=== PATIENT | male | born 1995 | race Caucasian/White ===

== ENCOUNTER 2022-03-18 03:38 | Inpatient (IN) | payer OTHER ==
--- NOTE | 2022-03-18 04:07 | ER ---
Nurse's Notes [facility] Name: Elvis Rosales Age: 26 yrs Sex: Male : 1995 Arrival Date: 03/18/2022 Time: 03:41 Bed 13 Private MD: Diagnosis: Right forearm cellulitis Presentation: 03/18 04:01 Chief complaint: Patient states: he was bitten by a dog 2 days ago and was seen at [facility] but was not able to get his antibiotics filled now right arm is swollen, painful, reddened. Coronavirus screen: At this time, the client does not indicate any symptoms associated with coronavirus-19. Ebola Screen: No symptoms or risks identified at this time. Initial Sepsis Screen: Does the patient meet any 2 criteria? No. Patient's initial sepsis screen is negative. Does the patient have a suspected source of infection? Yes: Skin breakdown/wound. Risk Assessment: Do you want to hurt yourself or someone else? Patient reports no desire to harm self or others. Onset of symptoms was March 18, 2022. 04:01 Method Of Arrival: Ambulatory 04:01 Acuity: MARION 3 Triage Assessment: 04:03 Bite description: bite sustained to right arm by a dog, animal information: bb vaccination(s) is unknown. 04:10 General: Appears in no apparent distress. uncomfortable, Behavior is calm, cooperative, vc1 appropriate for age. Pain: Complains of pain in right arm Pain currently is 7 out of 10 on a pain scale. Quality of pain is described as sharp, squeezing, throbbing, Pain began gradually. Neuro: No deficits noted. Cardiovascular: Patient's skin is warm and dry. Rhythm is sinus rhythm. Respiratory: Airway is patent Respiratory effort is even, unlabored, Respiratory pattern is regular, symmetrical. GI: No deficits noted. : No deficits noted. Derm: Skin temperature is hot Wound noted right arm. Musculoskeletal: Swelling present in right arm. Injury Description: Bite sustained to right arm caused by a dog, was sustained 2 days ago. Historical: - Allergies: 04:03 No Known Allergies; bb - Home Meds: 04:03 None [Active]; bb - PMHx: 04:03 None; bb - PSHx: 04:03 None; bb - Immunization history:: Client reports having NOT received the Covid vaccine. Last tetanus immunization: up to date. - Social history:: Smoking status: Patient reports the use of cigarette tobacco products. Screenin:10 Abuse screen: Denies threats or abuse. Nutritional screening: No deficits noted. vc1 Tuberculosis screening: No symptoms or risk factors identified. Fall Risk None identified. Sepsis Screening: . Infection: Patient has suspected or documented infection. Patient is currently on antibiotics that were not prescribed as prophylaxis. Assessment: 04:10 Derm: Skin Bite and abrasions to left arm Skin is pink, warm \\T\\ dry. vc1 04:10 Reassessment: See triage assessment. vc1 05:00 Reassessment: Patient and/or family updated on plan of care and expected duration. Pain vc1 level reassessed. Patient is alert, oriented x 3, equal unlabored respirations, skin warm/dry/pink. Patient states symptoms have improved. 06:23 Reassessment: Patient and/or family updated on plan of care and expected duration. Pain vc1 level reassessed. Patient is alert, oriented x 3, equal unlabored respirations, skin warm/dry/pink. Patient states symptoms have improved. Vital Signs: 04:01 BP 115 / 73; Pulse 135; Resp 16 S; Temp 100(O); Pulse Ox 98% on R/A; Weight 81.65 kg bb (R); Height 5 ft. 10 in. (177.80 cm) (R); Pain 7/10; 05:54 BP 113 / 70; Pulse 100; Resp 15; Pulse Ox 97% on R/A; vc1 06:23 BP 111 / 66; Pulse 92; Resp 17; Pulse Ox 100% ; vc1 04:01 Body Mass Index 25.83 (81.65 kg, 177.80 cm) ED Course: 03:41 Patient arrived in ED. ja2 03:53 Anton Amato DO is Attending Physician. ms3 04:03 Triage completed. bb 04:03 Arm band placed on Patient placed in an exam room, on a stretcher, on pulse oximetry. bb 04:07 Arden Cruz is Hospitalizing Provider. ms3 04:09 Destini Sosa, ZAID is Primary Nurse. vc1 04:25 No provider procedures requiring assistance completed. Inserted saline lock: 20 gauge vc1 in left antecubital area, using aseptic technique. Blood collected. 04:50 Inserted saline lock: 20 gauge in left forearm, using aseptic technique. Blood vc1 collected. 05:19 COVID-19/FLU A+B (Document "Date of Onset" if Symptomatic) Sent. vc1 05:53 Patient has correct armband on for positive identification. Bed in low position. Call vc1 light in reach. Client placed on continuous cardiac and pulse oximetry monitoring. NIBP monitoring applied. Administered Medications: 04:13 CANCELLED (Physician Discretion): vancoMYCIN 1 grams IVPB once over 2 hrs ms3 04:40 Drug: morphine 4 mg Route: IVP; Infused Over: 4 mins; Site: left antecubital; vc1 06:24 Follow up: Response: No adverse reaction; Marked relief of symptoms; Pain is decreased vc1 05:17 Drug: Zosyn (piperacillin-tazobactam) 3.375 grams Route: IVPB; Infused Over: 60 mins; vc1 Site: left antecubital; 06:25 Follow up: IV Status: Completed infusion; IV Intake: 100ml vc1 Intake: 06:25 IV: 100ml; Total: 100ml. vc1 Outcome: 04:07 Decision to Hospitalize by Provider. ms3 14:15 Patient left the ED. ph Signatures: Anamaria Loyola RN RN Taylor Merida RN RN ph Anton Amato DO DO ms3 Marry Rubio Vanessa, RN RN vc1
[2022-03-18] MEDS ORDERED: MORPHINE 4 MG/ML SYR ONE ×3 (04:44→13:27)
[2022-03-18] MEDS ORDERED: NA CHLORIDE 0.9% 100 ML ONE (04:45)
[2022-03-18] MEDS ORDERED: PIPERACIL/TAZO 3.375 GM VIAL IV ONE ×2 (04:45→14:46)
[2022-03-18 04:54] LABS: Hematocrit 42.4 % (39.6-49.0); Lymphocytes % 9.3 % (15.3-44.8); MPV 7.9 fL (7.6-11.3); RBC Red Blood Cell Count 4.62 M/uL (4.33-5.43)
--- NOTE | 2022-03-18 04:55 | P.HP ---
Certification for Inpatient Patient admitted to: Inpatient With expected LOS: <2 Midnights Patient will require the following post-hospital care: None Practitioner: I am a practitioner with admitting privileges, knowledge of patient current condition, hospital course, and medical plan of care. Services: Services provided to patient in accordance with Admission requirements found in Title 42 Section 412.3 of the Code of Federal Regulations Patient History Date of Service: 03/18/22 Reason for admission: Cellulitus R Forearm History of Present Illness: Patient is a 26 y/o male with no medical problems who presented to the ED with complaints of increased pain and swelling to his R forearm. Patient states that he was bit by a dog (that he believes is vaccinated) 2 days ago. He went to [facility], had the wounds cleaned, and was discharged with a prescription for Augmentin. Patient did not fill the prescription because he states he could not afford it. He reports the swelling and pain has slowly gotten worse and now he cannot fully bend his hand/fingers. Patient was tachycardic upon presentation to the ED. WBC 11.3. Will admit patient for IV antibiotics. Home medications list reviewed: Yes (NA) - Past Medical/Surgical History Diabetic: No Past Medical History: Patient denies medical history Past Surgical History: Patient denies surgical history Psychosocial/ Personal History: Patient lives at home with friends. - Family History Family History: Reviewed- Non-Contributory - Social History Smoking Status: Current every day smoker Alcohol use: Yes CD- Drugs: No Caffeine use: Yes Place of Residence: Home Review of Systems 10-point ROS is otherwise unremarkable Musculoskeletal: Arm Pain Physical Examination - Physical Exam General: Alert, In no apparent distress, Oriented x3 HEENT: Atraumatic, PERRLA, Mucous membr. moist/pink, EOMI, Sclerae nonicteric Neck: Supple, 2+ carotid pulse no bruit, No LAD, Without JVD or thyroid abnormality Respiratory: Clear to auscultation bilaterally, Normal air movement Cardiovascular: Normal S1 S2, Other (tachycardia) Gastrointestinal: Normal bowel sounds, No tenderness Musculoskeletal: No tenderness Integumentary: Tenderness/swelling, Erythema, Warmth, Other (multiple dog bites around R forearm. Cellulitus R forearm extending to dorsum ) Neurological: Normal speech, Sensation intact, Normal affect Assessment and Plan - Problems (Diagnosis) (1) Cellulitis of forearm, right Current Visit: Yes Status: Acute (2) Dog bite of right forearm with infection Current Visit: Yes Status: Acute Qualifiers: Encounter type: initial encounter Qualified Code(s): S51.851A - Open bite of right forearm, initial encounter; L08.9 - Local infection of the skin and subcutaneous tissue, unspecified; W54.0XXA - Bitten by dog, initial encounter (3) Hypokalemia Current Visit: Yes Status: Acute - Plan -IV zosyn -morphine PRN -general surgery consulted -wound care consult -monitor and replete electrolytes per protocol -Lovenox for VTE ppx -Full code Discharge Plan: Home Plan to discharge in: 48 Hours - Advance Directives Does patient have a Living Will: No Does patient have a Durable POA for Healthcare: No - Code Status/Comfort Care Code Status Assessed: Yes (Full) Critical Care: No Time Spent Managing Pts Care (In Minutes): 50
[2022-03-18 04:58] LABS: Protime INR 1.1
[2022-03-18] MEDS ORDERED: NA CHLORIDE 0.9% 500 ML ONE (05:00)
[2022-03-18 05:12] LABS: Albumin 3.6 g/dL (3.4-5.0); Bilirubin Total 0.8 mg/dL (0.2-1.0); Potassium 3.4 mmol/L (3.5-5.1)
[2022-03-18] MEDS ORDERED: ONDANSETRON 4 MG/2 ML VIAL IV PRN (06:51)
[2022-03-18 06:56] VITALS: BMI 25.8
[2022-03-18] MEDS: MORPHINE 4 MG/ML SYR IV PRN ×3 (08:40→17:35)
[2022-03-18] MEDS ORDERED: ENOXAPARIN 40 MG/0.4 ML SQ SCH (09:00)
[2022-03-18] MEDS ORDERED: PIPER TAZO 3.375 GM in NA CHLORIDE 0.9% 100 ML IV SCH ×2 (09:00→14:00)
--- NOTE | 2022-03-18 14:16 | EDPHYS ---
Physician Documentation [facility] Name: Elvis Rosales Age: 26 yrs Sex: Male : 1995 Arrival Date: 03/18/2022 Time: 03:41 Bed 13 Private MD: ED Physician Anton Amato HPI: 03/18 04:28 This 26 yrs old Male presents to ER via Ambulatory with complaints of Dog Bite. ms3 04:28 The patient was bitten on the right arm, by a dog, Accident because he moved too fast, ms3 Onset: The symptoms/episode began/occurred 2 day(s) ago. Animal information: The animal is known and can be quarantined. Secondary to the bite the patient reports an abrasion, pain, multiple puncture wounds, that are superficial, that are deep, swelling, warmth. Patient seen at [facility] 2 days ago. Patient denies filling prescription for abx.. Historical: - Allergies: 04:03 No Known Allergies; bb - Home Meds: 04:03 None [Active]; bb - PMHx: 04:03 None; bb - PSHx: 04:03 None; bb - Immunization history:: Client reports having NOT received the Covid vaccine. Last tetanus immunization: up to date. - Social history:: Smoking status: Patient reports the use of cigarette tobacco products. ROS: 04:28 Constitutional: Negative for fever, and chills. Neck: Negative for injury, pain, and ms3 swelling, Cardiovascular: Negative for chest pain, and palpitations. Respiratory: Negative for shortness of breath, cough, wheezing, and pleuritic chest pain, Abdomen/GI: Negative for abdominal pain, nausea, vomiting, diarrhea, and constipation. 04:28 Neuro: Negative for headache, weakness, numbness, tingling. 04:28 Skin: Positive for abrasion(s), erythema, puncture, rash, swelling. 04:28 All other systems are negative. Exam: 04:28 Head/Face: Normocephalic, atraumatic. Neck: Trachea midline, no cervical ms3 lymphadenopathy. Supple, full range of motion without nuchal rigidity, or vertebral point tenderness. No Meningismus. Chest/axilla: Normal chest wall appearance and motion. Nontender with no deformity. 04:28 Psych: Awake, alert, with orientation to person, place and time. Behavior, mood, and affect are within normal limits. 04:28 Constitutional: The patient appears 04:28 Cardiovascular: Rate: tachycardic, Rhythm: regular, Pulses: no pulse deficits are appreciated, Heart sounds: normal, normal S1and S2. 04:28 Skin: cellulitis, that is severe, confluent, on the right arm. 05:38 ECG was reviewed by the Attending Physician. ms3 Vital Signs: 04:01 BP 115 / 73; Pulse 135; Resp 16 S; Temp 100(O); Pulse Ox 98% on R/A; Weight 81.65 kg bb (R); Height 5 ft. 10 in. (177.80 cm) (R); Pain 7/10; 05:54 BP 113 / 70; Pulse 100; Resp 15; Pulse Ox 97% on R/A; vc1 06:23 BP 111 / 66; Pulse 92; Resp 17; Pulse Ox 100% ; vc1 04:01 Body Mass Index 25.83 (81.65 kg, 177.80 cm) bb MDM: 04:02 Patient medically screened. ms3 04:28 Differential diagnosis: superficial laceration, cellulitis. Data reviewed: vital signs, ms3 nurses notes. Counseling: I had a detailed discussion with the patient and/or guardian regarding: the historical points, exam findings, and any diagnostic results supporting the discharge/admit diagnosis, the need for further work-up and treatment in the hospital. ED course: Discussed case with BASSAM Duenas, and she accepts patient on behalf of Dr Cruz.. 03/18 04:08 Order name: Blood Culture Adult (2) ms3 03/18 04:08 Order name: CBC with Diff; Complete Time: 05:55 ms3 03/18 04:08 Order name: CMP; Complete Time: 05:55 ms3 03/18 04:08 Order name: Lactate; Complete Time: 05:55 ms3 03/18 04:08 Order name: Protime (+inr); Complete Time: 05:55 ms3 03/18 04:08 Order name: Ptt, Activated; Complete Time: 05:55 ms3 03/18 04:08 Order name: Accucheck; Complete Time: 05:08 ms3 03/18 04:09 Order name: Forearm Right XRAY ms3 03/18 04:15 Order name: COVID-19/FLU A+B (Document "Date of Onset" if Symptomatic) bb 03/18 04:46 Order name: Glucose, Ancillary Testing; Complete Time: 04:56 EDMS 03/18 05:56 Order name: SARS-COV-2 RT PCR; Complete Time: 13:27 EDMS 03/18 04:08 Order name: Cardiac monitoring; Complete Time: 05:57 ms3 03/18 04:08 Order name: EKG - Nurse/Tech; Complete Time: 05:49 ms3 03/18 04:08 Order name: IV Saline Lock - Large Bore; Complete Time: 05:09 ms3 03/18 04:08 Order name: Labs collected and sent; Complete Time: 05:09 ms3 04 04:08 Order name: O2 Per Protocol; Complete Time: 05:09 ms3 03/18 04:08 Order name: O2 Sat Monitoring; Complete Time: 05:09 ms3 EC:38 Rate is 95 beats/min. Rhythm is regular. QRS [place] is Normal. [place] interval is normal. ms3 Clinical impression: Normal ECG. Interpreted by me. Administered Medications: 04:13 CANCELLED (Physician Discretion): vancoMYCIN 1 grams IVPB once over 2 hrs ms3 04:40 Drug: morphine 4 mg Route: IVP; Infused Over: 4 mins; Site: left antecubital; vc1 06:24 Follow up: Response: No adverse reaction; Marked relief of symptoms; Pain is decreased vc1 05:17 Drug: Zosyn (piperacillin-tazobactam) 3.375 grams Route: IVPB; Infused Over: 60 mins; vc1 Site: left antecubital; 06:25 Follow up: IV Status: Completed infusion; IV Intake: 100ml vc1 Disposition Summary: 03/18/22 04:07 Hospitalization Ordered Hospitalization Status: Inpatient Admission ms3 Provider: Arden Cruz ms3 Condition: Stable ms3 Problem: new ms3 Symptoms: have worsened ms3 Bed/Room Type: Standard ms3 Location: Telemetry/MedSurg (Inpatient)(03/18/22 13:07) eb Room Assignment: [facility](03/18/22 13:07) eb Diagnosis - Right forearm cellulitis ms3 Forms: - Medication Reconciliation Form ms3 - SBAR form ms3 Signatures: Dispatcher [employer] EDMS Dali Pierce RN RN mw Anderson, Corey, MD MD cha Ballard, Brenda, RN RN Delmi Rob Marcus, DO DO ms3 Destini Sosa RN RN vc1 Fauzia Loving, PA PA sb3 Corrections: (The following items were deleted from the chart) 04:13 04:08 vancoMYCIN 1 grams IVPB once over 2 hrs ordered. ms3 ms3 04:45 04:07 Telemetry/MedSurg (Inpatient) ms3 mw 04:45 04:07 ms3 mw 13:07 04:45 [facility] ER HOLD mw eb 13:07 04:45 ERHOLD- mw eb
[2022-03-18 14:43] VITALS: O2SAT 100
--- NOTE | 2022-03-18 15:15 | P.PN ---
Date of Service: 03/18/22 Patient complaining of uncontrolled pain in the right arm. On examination, patient's right arm is swollen and tender with bite zaid on the radial aspect of the forearm. Patient with difficulty extending the elbow and may have tendon involvement. Seen by Dr. Worrell who recommended hand surgeon evaluation. High risk for compartment syndrome per Dr. Worrell. I could not reach Dr. Guan for an urgent consult. Dr. Worrell recommend transfer to another hospital for Hand Surgeon evaluation. Transfer to [facility]. Continue aggressive antibiotic therapy. Pain management as needed. Follow cultures.
[2022-03-18 15:47] VITALS: BP 110/67; TEMP 99.7
--- NOTE | 2022-03-18 15:54 | CON ---
Date of Consultation: 03/18/2022 Brief History Of Present Illness: Patient is a 26-year-old male, brought to ER via ambulatory with c billylaints of a dog bite which occurred approximately 3 days prior. He states that that it was his fr david's dog. He came in and startled the animal by accident as he came in his friend's house. The do g was startled, attacked him, and when the light was on, the dog identified him and backed off immedi ately. He ultimately knew the animal and it was quarantined by report. The bite caused multiple sma ll puncture wounds, abrasions on the right arm at the midforearm in that area. He went to [facility] approximately 2 days ago, was given a prescription for Augmentin, but did not fill du e to, he states, financial concerns. As such, the swelling, tenderness, and decreased function of hi s hand continued to worsen. He states that he can no longer open his hand fully, particularly the la st 2 fingers, but the ring finger and index finger are still able to flex, but extension is reduced i n all 4 extremities at this time by his report. Allergies: NO KNOWN DRUG ALLERGIES. Home Medications: None. Past Medical History: Denies. Past Surgical History: Denies. Immunization: He has not received a COVID vaccine. Tetanus is up to date. Social History: He uses tobacco daily. He denies any recreational drug use. Review of Systems: Ten-point review of systems other than HPI, denies. Physical Examination: At the time of my examination. Vital Signs: His blood pressure 110/58, heart rate is 90, respiratory rate 18, temperature 98.7. Pa in level is 9. His O2 sats are 99%. General: He is awake, alert, and oriented. Psychiatric: He is appropriate, conversive. HEENT: Normocephalic. His sclerae anicteric. Mucous membranes are moist. Oropharynx clear. Neck: Supple without JVD. Chest: Normal expansion and excursion. Cardiovascular: Regular rate and rhythm. Pulmonary: Clear to auscultation bilaterally. Extremities: Focused examination of his right upper extremity, there is significant swelling to the right upper extremity with cellulitic changes to the entire arm extending up to beyond the elbow join t. The biceps and triceps appear to be same size as the contralateral extremity, but the forearm and hand are clearly severely swollen. He has decreased range of motion, decreased sensation in hand an d decreased extension, particularly the last 2 fingers, the ring finger and the adjacent fifth finger had decreased extension significantly. He states that he still has sensation in the area but it is painful and tender in this area and has been so for several days prior to his presentation in the [facility]. He states that this is essentially unchanged from his previous symptoms over the past day or 2. Laboratory Exam: Reveals a white blood cell count of 11.3, hemoglobin is 14.5, hematocrit of 42.4, p latelet count is 199, neutrophils of 77%. His PT 12.1, INR 1.1, PTT is 32. His sodium 134, potassiu m 3.4, chloride 100, carbon dioxide 28, BUN 20, creatinine is 1.08, glucose is 114, lactic acid 1.2, total bilirubin 0.8, AST 13, ALT 18, alkaline phosphatase is 66. His COVID was negative. He had lilly ging performed, which included a forearm x-ray, which showed soft tissue swelling. No foreign bodies were appreciated and no fracture dislocations noted. Assessment And Plan: This is a 26-year-old male who comes in 3 days after a dog bite. Did not fill his prescription for antibiotics and now has progression of worsening of symptoms with decreased rang e of motion particularly and continued pain of the right upper extremity. 1.Continue antibiotic coverage. 2.Wrap and elevate extremity. 3.Patient requires a specialist Hand surgeon as his degree of injury is significant at this point, a nd he may require ongoing care beyond the scope of what we are capable of performing from a general s urgical standpoint. As such, I recommend a Hand surgeon be consulted or the patient be transferred t o higher level of care. I have explained risks, benefits, and alternatives to above-stated plan. Patient agrees to proceed a s indicated. EDUAR/ELLEN Voice ID: [id number] Report ID: [id number]
--- NOTE | 2022-03-18 17:40 | P.DS ---
Admission Date: 03/18/22 Discharge Date: 03/18/22 Reason for Admission: Cellulitus R Forearm - Problems (1) Cellulitis of forearm, right Current Visit: Yes Status: Acute (2) Dog bite of right forearm with infection Current Visit: Yes Status: Acute Qualifiers: Encounter type: initial encounter Qualified Code(s): S51.851A - Open bite of right forearm, initial encounter; L08.9 - Local infection of the skin and subcutaneous tissue, unspecified; W54.0XXA - Bitten by dog, initial encounter Brief History of Present Illness: Patient is a 26 y/o male with no medical problems who presented to the ED with complaints of increased pain and swelling to his R forearm. Patient states that he was bit by a dog (that he believes is vaccinated) 2 days ago. He went to [facility], had the wounds cleaned, and was discharged with a prescription for Augmentin. Patient did not fill the prescription because he states he could not afford it. He reported the swelling and pain got worse slowly to the point he could not fully bend his hand/fingers. Patient was tachycardic upon presentation to the ED. WBC 11.3 meeting criteria for sepsis. Patient hospitalized for further management. Hospital Course: Patient admitted to the medical floor and started on IV Zosyn. He was evaluated by general surgery-Dr. Worrell who recommended hand surgeon evaluation. Patient right forearm looked swollen and Dr. Worrell was concerned about impending compartment syndrome and therefore recommended transfer to another hospital for hand surgeons evaluation as soon as possible. Transfer initiated to [facility]. Patient has been accepted for transfer. He is clinically stable. Vital Signs/Physical Exam: Temp Pulse Resp BP Pulse Ox 99.7 F 89 16 110/67 99 03/18/22 15:46 03/18/22 15:46 03/18/22 17:35 03/18/22 15:46 03/18/22 17:35 General: Alert, In no apparent distress, Oriented x3 HEENT: Mucous membr. moist/pink Neck: Supple, JVD not distended Respiratory: Clear to auscultation bilaterally, Normal air movement Cardiovascular: No edema, Regular rate/rhythm, Normal S1 S2 Gastrointestinal: Normal bowel sounds, Soft and benign, Non-distended Musculoskeletal: Swelling (Right forearm) Integumentary: Erythema, Other (Dog bite crenshaw-mid radial aspect of the right forearm.) Neurological: Normal strength at 5/5 x4 extr, Cranial nerves 3-12 intact Laboratory Data at Discharge: WBC 11.3 K/uL (4.3-10.9) H 03/18/22 04:26 Hgb 14.5 g/dL (13.6-17.9) 03/18/22 04:26 Hct 42.4 % (39.6-49.0) 03/18/22 04:26 Plt Count 199 K/uL (152-406) 03/18/22 04:26 PT 12.1 SECONDS (9.5-12.5) 03/18/22 04:26 INR 1.10 03/18/22 04:26 APTT 32.0 SECONDS (24.3-36.9) 03/18/22 04:26 Sodium 134 mmol/L (136-145) L 03/18/22 04:26 Potassium 3.4 mmol/L (3.5-5.1) L 03/18/22 04:26 BUN 20 mg/dL (7-18) H 03/18/22 04:26 Creatinine 1.08 mg/dL (0.55-1.3) 03/18/22 04:26 Glucose 114 mg/dL (74-106) H 03/18/22 04:26 Total Bilirubin 0.8 mg/dL (0.2-1.0) 03/18/22 04:26 AST 13 U/L (15-37) L 03/18/22 04:26 ALT 18 U/L (12-78) 03/18/22 04:26 Alkaline Phosphatase 66 U/L (45-117) 03/18/22 04:26 Home Medications: NK [No Home Meds] 03/18/22 Followup: Tobias Kilpatrick MD [Primary Care Provider] - Time spent managing pt's care (in minutes): 33
--- NOTE | 2022-03-20 10:22 | RAD REPORT ---
EXAM DESCRIPTION: RAD - Forearm Right - 03/18/2022 5:23 am CLINICAL HISTORY: The patient is 26 years old and is Male; ANIMAL BITE TECHNIQUE: Two views of the right forearm. COMPARISON: No relevant prior studies available. FINDINGS: Bones/joints: Unremarkable. No acute fracture. No dislocation. Soft tissues: Soft tissue swelling without soft tissue gas. No radiopaque foreign object. IMPRESSION: Soft tissue swelling without soft tissue gas. Electronically signed by: Katina Howell MD 03/18/2022 5:51 AM CDT Due to temporary technical issues with the PACS/Fluency reporting system, reports are being signed by the in house radiologist without review as a courtesy to ensure prompt reporting. The interpreting r adiologist is fully responsible for the content of the report.
--- NOTE | 2022-03-20 13:24 | EKG ---
Test Date: 2022-03-18 Test Time: 05:38:28 Game Room Attendant: NICOLE MEASUREMENT RESULTS: Intervals: Rate: 95 W[place]: 122 QRSD: 84 QT: 356 QTc: 447 [place]: P: 57 W[place]: 122 QRS: 86 T: 38 INTERPRETIVE STATEMENTS: Normal sinus rhythm Normal ECG No previous ECG available for comparison Electronically Signed On 03-20-22 13:22:23 CDT by Ruddy Castro
== END 2022-03-18 18:25 | disposition short-term general hospital (02) | DRG 603 ==
LOC: ER 03:38 → ERHOLD 04:44 → 2ND 13:39
PROVIDERS: ADMIT Internal Medicine; ATTEND Internal Medicine
DX: L03.113 Cellulitis of right upper limb (principal); S51.851A Open bite of right forearm, initial encounter; W54.0XXA Bitten by dog, initial encounter; Z20.822 Contact with and (suspected) exposure to COVID-19
CPT/HCPCS: 36415; 80053; 82947; 83605; 85025; 85610; 85730; 87040; 93005; 96365; 96375; 99284; J2543; J7040; U0003

== ENCOUNTER 2023-02-20 15:38 | Emergency (ER) | payer OTHER, SELFPAY ==
--- OUTSIDE RECORDS SUMMARY | 2023-02-20 15:40 | XMS REPORT | Continuity of Care Document ---
:1995 Author Organization [facility] t Address [address] [place] [address] [address] [place] [address] Care Team Providers Name Role Phone EVIE MENENDEZ Attending Clinician Unavailable TRACY BATISTA Admitting Clinician Unavailable Payers Payer Name Policy Type Policy Number Effective Date Expiration Date [facility] DATA [facility] [id number] 2022 00:00:00 Problems This patient has no known problems. Allergies, Adverse Reactions, Alerts This patient has no known allergies or adverse reactions. Social History Social Habit Start Date Stop Date Quantity Comments Source Sex Assigned At [address] [facility] Medications This patient has no known medications. Procedures This patient has no known procedures. Plan of Care Planned Activity Planned Date Details Comments Source Future Scheduled 2023-06-[address] [facility] 00:00:00 (Season Ended) [code Medical Center = INFLUENZA VACCINE (Season Ended)] Future Scheduled 2022-10-[address] [facility] Test 00:00:00 (12+) [code = Medical Center DEPRESSION SCREENING (12+)] Future Scheduled 2012 DTAP/TDAP/TD VACCINES [facility] 00:00:00 (1 - Tdap) [code = Medical C enter DTAP/TDAP/TD VACCINES (1 - Tdap)] Future Scheduled 2011 HEPATITIS C SCREENING [facility] 00:00:00 [code = HEPATITIS C Medical Center SCREENING] Future Scheduled [address] [facility] Test 00:00:00 Counseling and Medical Cente r Screening (12+) [code = Tobacco Cessation Counseling and Screening (12+)] Future Scheduled 1994-05-24 COVID-19 VACCINE (#1) [facility] 00:00:00 [code = COVID-[address] VACCINE (#1)] Encounters Start End Encounter Admission Attending Care Care Encounter Source Date/Time Date/Time Type Type Clinicians Facility Department ID 2022-03-18 Inpatient [facility] Hand [id number] [facility] [facility] 2023-02-16 2023-02-16 Outpatient [facility] [id number] Anthony 17:43:06 17:43:06 [id number] Tasha Sanchez 2022-03-18 2022-03-21 Inpatient Tanner MENENDEZ [facility] MED [id number] [facility] 22:46:00 15:18:00 EVIE Results This patient has no known results.
--- NOTE | 2023-02-20 16:10 | ER ---
Nurse's Notes [facility] Name: Elvis Rosales Age: 27 yrs Sex: Male : 1995 Arrival Date: 02/20/2023 Time: 15:38 Bed 12 Private MD: Diagnosis: Temporomandibular joint disorder, unspecified-right Presentation: 02/20 15:44 Chief complaint: Patient states: right side of jaw is popping X 1 month , it is painful iw when it pops. Coronavirus screen: At this time, the client does not indicate any symptoms associated with coronavirus-19. Ebola Screen: Patient negative for fever greater than or equal to 101.5 degrees Fahrenheit, and additional compatible Ebola Virus Disease symptoms Patient denies exposure to infectious person. Patient denies travel to an Ebola-affected area in the 21 days before illness onset. No symptoms or risks identified at this time. Initial Sepsis Screen: Does the patient meet any 2 criteria? No. Patient's initial sepsis screen is negative. Does the patient have a suspected source of infection? No. Patient's initial sepsis screen is negative. Risk Assessment: Do you want to hurt yourself or someone else? Patient reports no desire to harm self or others. Onset of symptoms was January 2023. 15:44 Method Of Arrival: Ambulatory iw 15:44 Acuity: MARION 4 iw Historical: - Allergies: 15:45 No Known Allergies; iw - Home Meds: 15:45 None [Active]; iw - PMHx: 15:45 None; iw - PSHx: 15:45 None; iw - Immunization history:: Adult Immunizations. - Social history:: Smoking status: Patient reports the use of cigarette tobacco products, smokes one-half pack cigarettes per day. Screenin:50 [facility] ED Fall Risk Assessment (Adult) History of falling in the last 3 months, iw including since admission. Abuse screen: Denies threats or abuse. Denies injuries from another. Nutritional screening: No deficits noted. Tuberculosis screening: No symptoms or risk factors identified. Assessment: 15:49 General: Appears in no apparent distress. Behavior is calm, cooperative. Pain: iw Complains of pain in right jaw. Neuro: Level of Consciousness is awake, alert, obeys commands, Oriented to person, place, time, situation, Moves all extremities. Full function. Cardiovascular: Patient's skin is warm and dry. Respiratory: Respiratory effort is even, unlabored, Respiratory pattern is regular. EENT: Derm: Skin is intact, is healthy with good turgor. Musculoskeletal: Range of motion: intact in all extremities. Vital Signs: 15:44 BP 138 / 93; Pulse 78; Resp 16; Temp 98.9; Pulse Ox 99% on R/A; Weight 81.65 kg; Height iw 5 ft. 10 in. ; 15:44 Body Mass Index 25.83 (81.65 kg, 177.8 cm) iw ED Course: 15:39 Patient arrived in ED. ts1 15:41 Nikos Carrera PA is PHCP. cp 15:41 Ifeanyi Roland MD is Attending Physician. cp 15:45 Triage completed. iw 15:46 Arm band placed on. iw 15:50 Madison Mustafa RN is Primary Nurse. iw 15:50 Patient has correct armband on for positive identification. iw 16:09 Katie Rodriguez MD is Referral Physician. cp 16:15 No provider procedures requiring assistance completed. Patient did not have IV access iw during this emergency room visit. Administered Medications: No medications were administered Medication: 15:50 VIS not applicable for this client. iw Outcome: 16:09 Discharge ordered by . cp 16:15 Discharged to home ambulatory. iw 16:15 Condition: good 16:15 Discharge instructions given to patient, Instructed on discharge instructions, follow up and referral plans. Demonstrated understanding of instructions, follow-up care. 16:15 Patient left the ED. iw Signatures: Madison Mustafa RN RN iw Nikos Carrera PA PA cp Simpson, Tanya, PAS PAS ts1
--- NOTE | 2023-02-20 16:11 | EDPHYS ---
Physician Documentation [facility] Name: Elvis Rosales Age: 27 yrs Sex: Male : 1995 Arrival Date: 02/20/2023 Time: 15:38 Bed 12 Private MD: ED Physician Ifeanyi Roland HPI: 02/20 16:01 This 27 yrs old Male presents to ER via Ambulatory with complaints of Jaw Pain. cp 16:01 The patient presents with jaw pain. The problem is located in the right jaw. Onset: The cp symptoms/episode began/occurred 1 month(s) ago. Duration: The symptoms are continuous, and are unchanged since they started. Modifying factors: the symptoms are aggravated by chewing. Associated signs and symptoms: The patient has no apparent associated signs or symptoms. Severity of symptoms: in the emergency department the symptoms are unchanged, despite home interventions. Historical: - Allergies: 15:45 No Known Allergies; iw - Home Meds: 15:45 None [Active]; iw - PMHx: 15:45 None; iw - PSHx: 15:45 None; iw - Immunization history:: Adult Immunizations. - Social history:: Smoking status: Patient reports the use of cigarette tobacco products, smokes one-half pack cigarettes per day. ROS: 16:02 ENT: Positive for right side jaw pain. cp Exam: 16:05 Head/Face: Normocephalic, atraumatic. cp 16:05 Constitutional: The patient appears in no acute distress, alert, awake, comfortable, non-toxic, well developed, well nourished. 16:05 Eyes: Periorbital structures: appear normal, Conjunctiva: normal, no exudate, no injection, Sclera: no appreciated abnormality, Lids and lashes: appear normal, bilaterally. 16:05 ENT: External ear(s): are unremarkable, Ear canal(s): are normal, clear, TM's: bulging, is not appreciated, bilaterally, dullness, bilaterally, erythema, is not appreciated, bilaterally, Nose: External nose: no obvious acute abnormality, nasal drainage, is not appreciated, Mouth: Lips: moist, Oral mucosa: pink and intact, moist, Gums: normal with healthy appearance, Tongue: is normal, Posterior pharynx: is normal, airway is patent, no erythema, no exudate, Dental exam: abscess, is not appreciated, pain, is not appreciated, right TMJ tenderness to palpation, mild pain with opening jaw. Vital Signs: 15:44 BP 138 / 93; Pulse 78; Resp 16; Temp 98.9; Pulse Ox 99% on R/A; Weight 81.65 kg; Height iw 5 ft. 10 in. ; 15:44 Body Mass Index 25.83 (81.65 kg, 177.8 cm) MDM: 15:51 Patient medically screened. cp 16:00 Differential diagnosis: dental caries, gingivitis, dental abscess. cp 16:09 Data reviewed: vital signs, nurses notes. cp 16:09 Test considered but Not performed: CT: facial bones. Counseling: I had a detailed cp discussion with the patient and/or guardian regarding: the historical points, exam findings, and any diagnostic results supporting the discharge/admit diagnosis, the need for outpatient follow up, for definitive care, an ENT specialist, to return to the emergency department if symptoms worsen or persist or if there are any questions or concerns that arise at home. Administered Medications: No medications were administered Disposition: 19:46 Co-signature as Attending Physician, Ifeanyi Roland MD I reviewed the patient's care rn provided by the Advanced Practice Provider and agree with the diagnosis and treatment plan. Disposition Summary: 02/20/23 16:09 Discharge Ordered Location: Home cp Problem: new cp Symptoms: are unchanged cp Condition: Stable cp Diagnosis - Temporomandibular joint disorder, unspecified - right cp Followup: cp - With: Katie Rodriguez MD - When: 2 - 3 days - Reason: Recheck today's complaints Discharge Instructions: - Discharge Summary Sheet cp - Temporomandibular Joint Syndrome cp Forms: - Medication Reconciliation Form cp - Thank You Letter cp - Antibiotic Education cp - Prescription Opioid Use cp Prescriptions: - Naprosyn 500 mg Oral Tablet - take 1 tablet by ORAL route 2 times per day take with food; 30 tablet; Refills: cp 0, Product Selection Permitted Signatures: Madison Mustafa RN RN Ifeanyi Roland MD MD rn Page, Corey, PA PA cp
[2023-02-20 16:20] VITALS: BP 138/93; TEMP 98.9; O2SAT 99
== END 2023-02-20 16:15 | disposition home or self-care (01) ==
LOC: ER 15:38
DX: M26.601 Right temporomandibular joint disorder, unspecified (principal)
CPT/HCPCS: 99282